=== PATIENT | female | born 1960 | race Caucasian/White ===

== ENCOUNTER 2016-08-19 01:38 | Emergency (ER) | payer OTHER ==
[2016-08-19] MEDS ORDERED: NS 0.9% 1000 ML* 2,000 ML IV ONE (02:17)
[2016-08-19] MEDS ORDERED: Ketorolac INJ* 30 MG/ML 1 ML VIAL IV ONE (02:18)
[2016-08-19] MEDS ORDERED: Morphine INJ* 4 MG/ML 1 ML SYRINGE IV ONE ×2 (02:18→04:24)
[2016-08-19] MEDS ORDERED: Ondansetron INJ* 2 MG/ML VIAL IV ONE (02:18)
[2016-08-19 03:08] LABS: Hematocrit 40 % (35-47); Hemoglobin 13.7 g/dl (12.0-16.0); Mean Corpuscular HGB Conc 34 g/dl (31-36); Mean Corpuscular Hemoglobin 33 pg (27-31); Mean Corpuscular Volume 96 fL (80-97); Mean Platelet Volume 8 um3 (7.4-10.4); Red Cell Distribution Width 12 % (10.5-15); White Blood Count 4.5 10^3/ul (3.5-10.8)
[2016-08-19 03:29] LABS: Albumin 4.5 g/dL (3.2-5.2); C Reactive Protein 1.65 mg/L (< 5.00); EGFR African American 82.2 (>60); EGFR Non-African American 63.9 (>60); Globulin 2.9 g/dL (2-4); Potassium 3.7 mmol/L (3.5-5.0); Total Bilirubin 0.3 mg/dL (0.2-1.0); Total Protein 7.4 g/dL (6.4-8.9)
[2016-08-19 05:04] LABS: Urine Bacteria Absent (Absent); Urine Bilirubin Negative (Negative); Urine Glucose Negative (Negative); Urine Nitrite Negative (Negative)
[2016-08-19] MEDS ORDERED: traMADol TAB* 50 MG PO ONE (05:26)
--- NOTE | 2016-08-19 05:36 | ED ---
edin Rodriguez Timothy, scribed for Jerel Garay MD on 08/19/16 at 0222 . GI/ HPI - HPI Summary HPI Summary: Gilda Goode is a 56 yo female presenting to [facility] with 8/10 right flank pain since 0100 08/19/16. She states that it sometimes gets worse, but denies any radiation of pain. She denies any Hx of kidney stones or abd surgery. She states that there are no aggravating or alleviating factors. She denies any urinary urgency or SOB. - History of Current Complaint Chief Complaint: EDFlankPain Time Seen by Provider: 08/19/16 02:19 Stated Complaint: RUQ PAIN Hx Obtained From: Patient Onset/Duration: Started Hours Ago, Still Present Timing: Constant Severity: Moderate Current Severity: Moderate Pain Intensity: 8 Location of Pain: Flank - right Aggravating Factor(s): Nothing Alleviating Factor(s): Nothing - Allergy/Home Medications Allergies/Adverse Reactions: Allergies Allergy/AdvReac Type Severity Reaction Status Date / Time No Known Allergies Allergy Verified 08/19/16 04:31 PMH/Surg Hx/FS Hx/Imm Hx Infectious Disease History: Denies: Traveled Outside the [place] in Last 30 Days - Family History Known Family History: Positive: Hypertension, Diabetes Negative: Cardiac Disease - Social History Lives: With Family Hx Substance Use: No Substance Use Type: Reports: None Hx Tobacco Use: No Smoking Status (MU): Never Smoked Tobacco Review of Systems Constitutional: Negative Eyes: Negative ENT: Negative Cardiovascular: Negative Respiratory: Negative Negative: Shortness Of Breath Gastrointestinal: Negative Positive: flank pain - right. Negative: urgency Musculoskeletal: Negative Skin: Negative Neurological: Negative Psychological: Normal All Other Systems Reviewed And Are Negative: Yes Physical Exam Triage Information Reviewed: Yes Vital Signs On Initial Exam: Initial Vitals Temp Pulse Resp BP Pulse Ox 97.8 F 78 20 184/104 100 08/19/16 01:39 08/19/16 01:39 08/19/16 01:39 08/19/16 01:39 08/19/16 01:39 Vital Signs Reviewed: Yes Appearance: Positive: Well-Appearing, Well-Nourished, Pain Distress - moderate Skin: Positive: Warm, Skin Color Reflects Adequate Perfusion, Dry, Other - no rashes Head/Face: Positive: Normal Head/Face Inspection Eyes: Positive: EOMI, DOMINIC Neck: Positive: Supple, Nontender Respiratory/Lung Sounds: Positive: Clear to Auscultation, Breath Sounds Present Cardiovascular: Positive: RRR Abdomen Description: Positive: Nontender, Soft, CVA Tenderness (R) Bowel Sounds: Positive: Present Musculoskeletal: Positive: Normal, Strength/ROM Intact Neurological: Positive: Normal, Sensory/Motor Intact, Alert, Oriented to Person Place, Time Psychiatric: Positive: Affect/Mood Appropriate Diagnostics - Vital Signs Vital Signs Temp Pulse Resp BP Pulse Ox 08/19/16 01:39 97.8 F 78 20 184/104 100 - Laboratory Lab Results: Lab Results 08/19/16 08/19/16 08/19/16 Range/Units 02:55 02:55 02:55 WBC 4.5 (3.5-10.8) 10^3/ul RBC 4.20 (4.0-5.4) 10^6/ul Hgb 13.7 (12.0-16.0) g/dl Hct 40 (35-47) % MCV 96 (80-97) fL MCH 33 H (27-31) pg MCHC 34 (31-36) g/dl RDW 12 (10.5-15) % Plt Count 196 (150-450) 10^3/ul MPV 8 (7.4-10.4) um3 Neut % (Auto) 56.6 (38-83) % Lymph % (Auto) 28.2 (25-47) % [place] % (Auto) 10.2 H (1-9) % Eos % (Auto) 4.2 (0-6) % Baso % (Auto) 0.8 (0-2) % Absolute Neuts (auto) 2.5 (1.5-7.7) 10^3/ul Absolute Lymphs (auto) 1.3 (1.0-4.8) 10^3/ul Absolute Monos (auto) 0.5 (0-0.8) 10^3/ul Absolute Eos (auto) 0.2 (0-0.6) 10^3/ul Absolute Basos (auto) 0 (0-0.2) 10^3/ul Absolute Nucleated RBC 0 10^3/ul Nucleated RBC % 0 D-Dimer, Quantitative (Less Than 230) ng/mL Sodium 137 (133-145) mmol/L Potassium 3.7 (3.5-5.0) mmol/L Chloride 102 (101-111) mmol/L Carbon Dioxide 25 (22-32) mmol/L Anion Gap 10 (2-11) mmol/L BUN 20 (6-24) mg/dL Creatinine 0.91 (0.51-0.95) mg/dL Est GFR ( Amer) 82.2 (>60) Est GFR (Non-Af Amer) 63.9 (>60) BUN/Creatinine Ratio 22.0 H (8-20) Glucose 110 H (70-100) mg/dL Lactic Acid 1.5 (0.5-2.0) mmol/L Calcium 10.0 (8.6-10.3) mg/dL Total Bilirubin 0.30 (0.2-1.0) mg/dL AST 19 (13-39) U/L ALT 16 (7-52) U/L Alkaline Phosphatase 62 (34-104) U/L C-Reactive Protein 1.65 (< 5.00) mg/L Total Protein 7.4 (6.4-8.9) g/dL Albumin 4.5 (3.2-5.2) g/dL Globulin 2.9 (2-4) g/dL Albumin/Globulin Ratio 1.6 (1-3) Lipase 34 (11.0-82.0) U/L Urine Color Urine Appearance Urine pH (5-9) Ur Specific [place] (1.010-1.030) Urine Protein (Negative) Urine Ketones (Negative) Urine Blood (Negative) Urine Nitrate (Negative) Urine Bilirubin (Negative) Urine Urobilinogen (Negative) Ur Leukocyte Esterase (Negative) Urine WBC (Auto) (Absent) Urine RBC (Auto) (Absent) Urine Bacteria (Absent) Urine Glucose (Negative) 08/19/16 08/19/16 Range/Units 02:55 04:40 WBC (3.5-10.8) 10^3/ul RBC (4.0-5.4) 10^6/ul Hgb (12.0-16.0) g/dl Hct (35-47) % MCV (80-97) fL MCH (27-31) pg MCHC (31-36) g/dl RDW (10.5-15) % Plt Count (150-450) 10^3/ul MPV (7.4-10.4) um3 Neut % (Auto) (38-83) % Lymph % (Auto) (25-47) % [place] % (Auto) (1-9) % Eos % (Auto) (0-6) % Baso % (Auto) (0-2) % Absolute Neuts (auto) (1.5-7.7) 10^3/ul Absolute Lymphs (auto) (1.0-4.8) 10^3/ul Absolute Monos (auto) (0-0.8) 10^3/ul Absolute Eos (auto) (0-0.6) 10^3/ul Absolute Basos (auto) (0-0.2) 10^3/ul Absolute Nucleated RBC 10^3/ul Nucleated RBC % D-Dimer, Quantitative < 200 (Less Than 230) ng/mL Sodium (133-145) mmol/L Potassium (3.5-5.0) mmol/L Chloride (101-111) mmol/L Carbon Dioxide (22-32) mmol/L Anion Gap (2-11) mmol/L BUN (6-24) mg/dL Creatinine (0.51-0.95) mg/dL Est GFR ( Amer) (>60) Est GFR (Non-Af Amer) (>60) BUN/Creatinine Ratio (8-20) Glucose (70-100) mg/dL Lactic Acid (0.5-2.0) mmol/L Calcium (8.6-10.3) mg/dL Total Bilirubin (0.2-1.0) mg/dL AST (13-39) U/L ALT (7-52) U/L Alkaline Phosphatase (34-104) U/L C-Reactive Protein (< 5.00) mg/L Total Protein (6.4-8.9) g/dL Albumin (3.2-5.2) g/dL Globulin (2-4) g/dL Albumin/Globulin Ratio (1-3) Lipase (11.0-82.0) U/L Urine Color Yellow Urine Appearance Clear Urine pH 5.0 (5-9) Ur Specific [place] 1.016 (1.010-1.030) Urine Protein Negative (Negative) Urine Ketones Negative (Negative) Urine Blood Negative (Negative) Urine Nitrate Negative (Negative) Urine Bilirubin Negative (Negative) Urine Urobilinogen Negative (Negative) Ur Leukocyte Esterase 1+ H (Negative) Urine WBC (Auto) 1+(6-10/hpf) H (Absent) Urine RBC (Auto) Trace(0-2/hpf) (Absent) Urine Bacteria Absent (Absent) Urine Glucose Negative (Negative) Result Diagrams: 08/19/16 02:55 08/19/16 02:55 Lab Statement: Any lab studies that have been ordered have been reviewed, and results considered in the medical decision making process. - CT A/P CT Interpretation: No Acute Changes - There is no hydronephrosis. There is no ureteral dilation. There are no renal or ureteral calculi seen. There are no obvious gallstones. There is a moderate amount of stool noted in the colon. There is no obvious acute intestinal obstruction. The appendix is normal in size. Urinary bladder is normal in dimension. There are no bladder calculi. There is grade 1 spondylolithesis of L5-S1 with likely chronic bilateral spondylolysis of the pars interarticularis of L5. CT Interpretation Completed By: Radiologist - Imaging Combo Welder Re-Evaluation - Re-Evaluation First Eval Re-Evaluation Time: 04:21 Change: Improved Comment: Discussed lab and imaging study results with Pt. Pt still has pain, but it is slightly decreased. GIGU Course/Dx - Course Assessment/Plan: Gilda Goode is a 56 yo female presenting to [facility] with 8/10 right flank pain since 0100 this morning. Pt medication list reviewed this visit. In the Ed course she received zofran for nausea control, morphine, toradol, tramadol, and IV fluids. Her CT A/P shows that there is no hydronephrosis. There is no ureteral dilation. There are no renal or ureteral calculi seen. There are no obvious gallstones. There is a moderate amount of stool noted in the colon. There is no obvious acute intestinal obstruction. The appendix is normal in size. Urinary bladder is normal in dimension. There are no bladder calculi. There is grade 1 spondylolithesis of L5-S1 with likely chronic bilateral spondylolysis of the pars interarticularis of L5. NO CRITICAL CARE TIME. PAIN MILDLY DECREASED WITH PAIN MEDICATION IN ED. DISCUSSED RESULTS WITH PATIENT/. PAIN IS NOT SPLINTING, NO SOB, THERE IS NO ANTERIOR ABDOMINAL PAIN, NO RASH. CT WNL. UA WITH SOME WBCS BUT, NO OTHER SIGNS OF INFECTION. DISCUSSED ABX RX; PATIENT DECLINED HAS NO UTI SX. DISCUSSED MORE PAIN MEDS IN ED AND POSSIBLE ADMISSION FOR PAIN. PATIENT PREFERS TO GO HOME AND F/U WITH PMD; SHE WILL RETURN IF WORSE OR QUESTIONS OR CONCERNS. DISCHARGE HOME STABLE. - Diagnoses Provider Diagnoses: Right flank pain Discharge - Discharge Plan Condition: Stable Disposition: HOME Prescriptions: traMADol TAB* [Ultram*] 50 mg PO Q6HR PRN #10 tab MDD 4 PRN Reason: Pain Patient Education Materials: Flank Pain (ED) Referrals: Ghulam Orlando MD [Primary Care Provider] - 2 Days Additional Instructions: FOLLOW UP WITH YOUR DOCTOR. RETURN TO THE EMERGENCY DEPARTMENT FOR ANY WORSENING OF YOUR CONDITION; PERSISTENT OR WORSE PAIN, PAIN IN YOUR ABDOMEN OR CHEST, SHORTNESS OF BREATH, FEVER, VOMITING, YOU FEEL ILL OR QUESTIONS OR CONCERNS. The documentation as recorded by the edin recio Timothy accurately reflects the service I personally performed and the decisions made by me, Jerel Garay MD.
[2016-08-19 05:52] VITALS: BP 138/76
--- NOTE | 2016-08-19 08:17 | RAD ---
INDICATION: RIGHT flank pain. RIGHT upper quadrant pain. COMPARISON: No relevant prior exams available on the [facility] PACS for comparison. TECHNIQUE: Multidetector CT images were obtained from the lung bases to the ischial tuberosities. Evaluation of the viscera is limited without IV contrast. Multiplanar reformation. REPORT: Unremarkable visualized inferior thorax. No CT abnormality of the unenhanced liver or pancreas. Suggestion of mild dilatation of the pancreatic duct measuring up to 3 mm diameter at the tail. Unremarkable spleen. Negative for CT abnormality of the upper GI, small bowel, or appendix visualized along the RIGHT pelvic sidewall. Redundant colon with moderate stool. Small volume of free fluid in the pelvis. Negative for free air or significant hernias. Normal adrenal glands. Ptotic RIGHT kidney. Negative for nephrolithiasis, hydronephrosis, or focal renal lesions. No ureteral dilatation or ureteral stone evident. Multiple pelvic phleboliths. Unremarkable urinary bladder as well as the retroverted uterus and adnexal regions. No lymphadenopathy visualized. Normal diameter abdominal aorta and iliac arteries with minimal calcific plaque. Physiologic distention of the IVC. Bilateral L5 spondylolysis with grade 1 anterolisthesis. Degenerative spondylosis and facet joint osteoarthritis most prominent at L4-L5 and L5-S1. At L5-S1 there is mild RIGHT and moderately severe LEFT foraminal stenosis. IMPRESSION: 1. Negative for urolithiasis or hydronephrosis. 2. Mild prominence of the pancreatic duct. Assessment of the pancreas is limited without IV and oral contrast. No biliary dilatation evident. Correlate with clinical presentation and consider RIGHT upper quadrant ultrasound for further assessment. 3. Normal appendix documented. Moderate stool in the colon. No acute pathologic process of the alimentary tract evident. Results discussed with Charge Nurse Brandy in the ED 08/19/2016 8:14 AM EDT
--- NOTE | 2016-08-21 09:52 | PN ---
Progress Note - Progress Note Date of Service: 08/21/16 Note: Patient urine grew Pseudomonas Aerguinosa 10-25,000 as no UTI symptoms per note will not treat at this time.
--- NOTE | 2016-08-22 09:30 | PN ---
Progress Note - Progress Note Date of Service: 08/22/16 Note: Spoke with patient no UTI symptoms so will not treat
== END 2016-08-19 05:45 | disposition home or self-care (01) ==
LOC: ED 01:38
DX: R10.11 Right upper quadrant pain (principal)
CPT/HCPCS: 36415; 74176; 80053; 81003; 81015; 83605; 83690; 85025; 85379; 86140; 87077; 87086; 87186; 96361; 96374; 96375; 99284; A9270-GY; J1885; J2270; J2405